=== PATIENT | female | born 1970 | race Caucasian/White ===

== ENCOUNTER → 2019-06-25 | Outpatient (CLI) | payer BC ==
[~2019-06-25] MED LIST: LEXAPRO
--- NOTE | 2019-06-25 09:08 | Diagnostic Imaging Report ---
TECHNIQUE: Magnetic resonance imaging of the RIGHT ANKLE was performed WITHOUT injected contrast. COMPARISON: None available. HISTORY: Right ankle pain FINDINGS: LIGAMENTS: Medial Complex: Intact Lateral Complex: Intact TENDONS: Medial: Posterior tibial and flexor tendons intact. Lateral: Peroneal brevis tendinopathy with partial tearing extending from the lateral malleolus to just distal to the peroneal tubercle. Additional magic angle artifact Peroneal longus intact. Anterior: Anterior tibial and extensor tendons intact. Achilles: Mild insertional Achilles tendinopathy BONES: No focal or infiltrative bone marrow replacing abnormality. No acute fracture or osteonecrosis. JOINTS: Cartilage: No focal defect is identified involving the tibiotalar joint. Other: Fluid within the joints is within physiologic limits. SOFT TISSUES: Sinus Tarsi clear. Plantar fascia unremarkable. IMPRESSION: Peroneal brevis tendinopathy with partial tearing Signed by: Dr. Delon Nazario M.D. on 06/25/2019 9:06 AM
== END ==
LOC: MRI 07:37
PROVIDERS: ATTEND Podiatrist Foot & Ankle Surgery
DX: M76.71 Peroneal tendinitis, right leg (principal)